=== PATIENT | male | born 1985 | race Two or more races ===

== ENCOUNTER 2024-06-05 19:04 | Emergency (ER) | payer OTHER ==
[~2024-06-05] VITALS: Ht 172.7 cm; Wt 77.1 kg
[2024-06-05 19:13] VITALS: TEMP 97.9
[2024-06-05 20:02] VITALS: BP 99/84; O2SAT 98
== END 2024-06-05 21:29 | disposition home or self-care (01) ==
LOC: ER 19:07
DX: S90.32XA Contusion of left foot, initial encounter (principal); W22.8XXA Striking against or struck by other objects, initial encounter; Y93.89 Activity, other specified; Y92.89 Other specified places as the place of occurrence of the external cause; Y99.8 Other external cause status
CPT/HCPCS: 73630-TC